=== PATIENT | female | born 1960 | race African-American/Black ===

== ENCOUNTER 2017-01-17 10:40 | Emergency (ER) | payer MEDICAID, OTHER ==
[~2017-01-17] VITALS: Ht 165.1 cm; Wt 59.0 kg
[2017-01-17] MEDS ORDERED: CLONIDINE 0.1MG TABLET PO ONE (13:00)
[2017-01-17 14:15] VITALS: BP 151/89
== END 2017-01-17 14:16 | disposition home or self-care (01) ==
LOC: ER 12:46
DX: N63 Unspecified lump in breast (principal); I10 Essential (primary) hypertension; F12.90 Cannabis use, unspecified, uncomplicated
CPT/HCPCS: 76641; 99284; Z7610

== ENCOUNTER 2018-10-09 16:25 | Emergency (ER) | payer MEDICAID, OTHER ==
[~2018-10-09] VITALS: Ht 157.5 cm; Wt 65.0 kg
[2018-10-09] MEDS ORDERED: KETOROLAC 30MG/ML VIAL IV STA (22:03)
[2018-10-09] MEDS ORDERED: SODIUM CHLORIDE 0.9% 1,000 ML IV ONE (22:03)
[2018-10-09] MEDS ORDERED: MORPHINE SULFATE 4 MG/ML CPJ (NOT FOR IM USE) IV STA (22:03)
[2018-10-09 22:16] LABS: EOSINOPHILS % 2.6 % (0.0-5.0); HEMATOCRIT. 38.3 % (36.0-48.0); HEMOGLOBIN. 12.9 g/dL (12.0-16.0); LYMPHOCYTES % 29.6 % (20.0-50.0); MEAN CORPUSCULAR HEMOGLOBIN 26.8 pg (28.0-32.0); MEAN CORPUSCULAR VOLUME 79.6 fL (81.0-99.0); MEAN PLATELET VOLUME 8.5 fl (7.4-10.4); MONOCYTES % 7.5 % (2.0-8.0); NEUTROPHILS % 59.3 % (40.0-76.0); PLATELET 291 x1000/uL (130-400); RED BLOOD CELL COUNT 4.81 mill/uL (4.2-5.4); RED CELL DISTRIBUTION WIDTH 20.6 % (11.6-14.6)
[2018-10-09 22:17] LABS: CLARITY URINE CLEAR (CLEAR); COLOR URINE YELLOW (YELLOW); KETONES URINE NEGATIVE (NEGATIVE); LEUKOCYTE ESTERASE URINE 1+ (NEGATIVE); NITRITE URINE NEGATIVE (NEGATIVE); OCCULT BLOOD URINE TRACE (NEGATIVE); PH URINE 5.5 (4.5-8.0); PROTEIN URINE NEGATIVE (NEGATIVE); SPECIFIC GRAVITY URINE 1.017 (1.005-1.030)
[2018-10-09 22:21] LABS: CHLORIDE 111 mEq/L (98-107)
[2018-10-09 23:23] LABS: CREATINE KINASE 146 IU/L (26-192)
[2018-10-10] MEDS ORDERED: CEFTRIAXONE 1 G PREMIX 50 ML IV ONE
[2018-10-10] MEDS ORDERED: MORPHINE SULFATE 4 MG/ML CPJ (NOT FOR IM USE) IV ONE (01:00)
[2018-10-10 04:30] VITALS: BP 156/88
== END 2018-10-10 05:38 | disposition home or self-care (01) ==
LOC: ER 16:25
DX: R10.32 Left lower quadrant pain (principal); I10 Essential (primary) hypertension; A09 Infectious gastroenteritis and colitis, unspecified; Z98.890 Other specified postprocedural states
CPT/HCPCS: 36415; 74176; 76856; 80053; 81003; 82550; 83690; 85025; 85610; 96365; 96375; 96376; 99284; J0696; J1885; J2270; J7030